=== PATIENT | male | born 1980 | race American Indian/Alaskan Native ===

== ENCOUNTER 2016-11-09 12:34 | Outpatient (CLI) | payer OTHER ==
[2016-11-09] MEDS ORDERED: NACL ONE ×2 (14:54→15:00)
--- NOTE | 2016-11-09 16:01 | Cat Scan Report ---
CT of the abdomen and pelvis with IV and oral contrast. History: Abdominal pain, chronic viral hepatitis B. Findings: The liver is normal in size and configuration with no focal abnormalities. The spleen, pancreas, and gallbladder are unremarkable. There is a paucity of retroperitoneal fat. The kidneys are normal in size and configuration with no evidence of hydronephrosis. A 1 cm cyst is seen in the mid pole of the right kidney. There no pelvic masses or abnormal fluid collections. No mesenteric inflammation is seen. Impression: Small right renal cyst, otherwise unremarkable study.
== END 2016-11-09 12:35 | disposition home or self-care (01) ==
LOC: CT 12:34
PROVIDERS: ATTEND Internal Medicine Gastroenterology
DX: B18.1 Chronic viral hepatitis B without delta-agent (principal); N28.1 Cyst of kidney, acquired; R10.9 Unspecified abdominal pain; R94.5 Abnormal results of liver function studies
CPT/HCPCS: 74177; Q9967